=== PATIENT | male | born 1970 | race Caucasian/White ===

== ENCOUNTER → 2023-02-28 17:47 | Emergency (ER) | payer MEDICARE, MEDICAID ==
[~2023-02-28 17:47] MED LIST: DIV250T; LITH150C6; ONDA-144; SUCR1TAB36; ZOLP5TAB; [UNRECOGNIZED DRUG - REMARK]
== END | disposition left against medical advice (07) ==
LOC: ER 17:47
DX: M54.9 Dorsalgia, unspecified (principal); Z53.21 Procedure and treatment not carried out due to patient leaving prior to being seen by health care provider